=== PATIENT | male | born 1940 | race Caucasian/White ===

== ENCOUNTER 2022-03-26 13:56 | Observation (INO) | payer OTHER ==
[2022-03-26] MEDS ORDERED: NA CHLORIDE 0.9% 1,000 ML ONE ×2 (15:20→17:36)
--- NOTE | 2022-03-26 15:27 | RAD REPORT ---
EXAM DESCRIPTION: RAD - Chest Single View - 03/26/2022 3:17 pm CLINICAL HISTORY: COUGH Chest pain. COMPARISON: No comparisons FINDINGS: Portable technique limits examination quality. [id number] bilateral interstitial lung opacities likely representing viral infection. The heart is upper limit of normal in size. No displaced fractures.
[2022-03-26 15:28] LABS: Absolute Lymphocytes (CBC) 2.2 K/uL (0.7-4.9); Lymphocytes % 17.6 % (15.3-44.8); MCV 107.3 fL (80-100); MPV 8.5 fL (7.6-11.3); RBC Red Blood Cell Count 3.73 M/uL (4.33-5.43)
[2022-03-26 15:30] LABS: Protime INR 1.12
[2022-03-26 15:44] LABS: Albumin 3.3 g/dL (3.4-5.0); Bilirubin Direct 0.1 mg/dL (0-0.2); Bilirubin Total 0.5 mg/dL (0.2-1.0); Magnesium 2.3 mg/dL (1.8-2.4); Potassium 3.8 mmol/L (3.5-5.1); Protein, Total 7.8 g/dL (6.4-8.2); Troponin High Sensitivity 9.8 pg/mL (<58.9)
[2022-03-26 16:01] LABS: Blood Morphology Comment NOTED (NOT SEEN); Macrocytosis 1+; Platelet Estimate ADEQ; White Blood Cell Scan OK (OK)
--- NOTE | 2022-03-26 16:25 | RAD REPORT ---
EXAM DESCRIPTION: CT - Chest Abdomen Pelvis W Cont - 03/26/2022 4:09 pm CLINICAL HISTORY: Chest and abdomen pain. abd pain COMPARISON: No comparisons TECHNIQUE: Approximately 100 mL nonionic IV contrast was administered to the patient. All CT scans are performed using dose optimization technique as appropriate and may include automated exposure control or mA/KV adjustment according to patient size. FINDINGS: Moderate emphysematous changes are present throughout the lungs with scarring in the poste rior left upper lobe. 7 mm noncalcified nodule is seen superior segment right lower lobe (image 34/92 ).Honeycombing is present in right lung in particular compatible with fibrosis.No pleural or pericard ial effusion.No intrathoracic adenopathy. Mild diffuse fatty liver is present. The spleen is normal size. A small amount of free fluid is seen along the edge of the liver and spleen. Probable mild pericholecystic fluid. The pancreas, adrenal gl ands kidneys within normal limits. Multiple thickened loops of small intestine are present predominately the ileum including the termina l ileum. Normal appendix. No bowel obstruction, free air or abscess. Trace free fluid in the pelvis. No pathologic lymphadenopathy in the abdomen or pelvis. No worrisome osseous finding. IMPRESSION: Thickened small bowel loops are present including the terminal ileum. This is most faith tible with ileitis which may be related infection or inflammatory bowel disease. Moderate fibro-emphysematous changes throughout the lungs. 7 mm noncalcified nodule superior segment right lower lobe. Recommend follow-up CT chest in 3-6 months for monitoring. Prominent fatty liver.
[2022-03-26 16:39] LABS: SARS-CoV-2 Antigen Rapid Res Negative (Negative)
--- NOTE | 2022-03-26 16:49 | ER ---
[facility] Name: Zelalem Spencer Age: 81 yrs Sex: Male : 1940 Arrival Date: 03/26/2022 Time: 13:57 Bed 30 Private MD: Diagnosis: Other viral enteritis-ileitis;Vomiting;Diarrhea, unspecified;Abdominal pain, Generalized Presentation: 03/26 14:28 Chief complaint: Patient states: SENT FROM [place] FOR DIARRHEA, DIARRHEA x4 DAYS AFTER bp TAKING LAXATIVE FOR CONSTIPATION. Coronavirus screen: At this time, the client does not indicate any symptoms associated with coronavirus-19. Ebola Screen: No symptoms or risks identified at this time. Initial Sepsis Screen: Does the patient meet any 2 criteria? No. Patient's initial sepsis screen is negative. Does the patient have a suspected source of infection? No. Patient's initial sepsis screen is negative. Risk Assessment: Do you want to hurt yourself or someone else? Patient reports no desire to harm self or others. Onset of symptoms is unknown. 14:28 Method Of Arrival: Ambulatory bp 14:28 Acuity: SHEA 3 bp Triage Assessment: 14:30 General: Appears in no apparent distress. uncomfortable, Behavior is cooperative, bp appropriate for age, anxious. Pain: Denies pain. EENT: No deficits noted. Neuro: No deficits noted. Cardiovascular: No deficits noted. Respiratory: No deficits noted. GI: Reports diarrhea. : No signs and/or symptoms were reported regarding the genitourinary system. Derm: No deficits noted. Musculoskeletal: No deficits noted. Historical: - Allergies: 14:30 No Known Allergies; bp - Home Meds: 14:30 Lisinopril Oral [Active]; HOME OXYGEN [Active]; bp - PMHx: 14:30 Chronic obstructive lung disease; Hypertensive disorder; Hypercholesterolemia; bp - Immunization history:: Adult Immunizations up to date. - Social history:: Smoking status: Patient denies any tobacco usage or history of. - Family history:: not pertinent. Screenin:31 Abuse screen: Denies threats or abuse. Denies injuries from another. Nutritional bp screening: No deficits noted. Tuberculosis screening: No symptoms or risk factors identified. Fall Risk None identified. Assessment: 14:31 General: SEE TRIAGE NOTE. bp 15:22 Reassessment: No changes from previously documented assessment. Patient and/or family bp updated on plan of care and expected duration. Pain level reassessed. 17:30 Reassessment: No changes from previously documented assessment. Patient and/or family bp updated on plan of care and expected duration. Pain level reassessed. 18:30 Reassessment: ADMIT IN PROCESS. bp 03/27 10:32 GI: Bowel sounds present X 4 quads. Abd is soft. ap3 Vital Signs: 03/26 14:28 BP 173 / 74; Pulse 71; Resp 16; Temp 98; Pulse Ox 97% ; Weight 82.1 kg; Height 5 ft. 7 bp in. (170.18 cm); 15:22 BP 148 / 65; Pulse 69; Resp 16; Pulse Ox 96% ; bp 16:30 BP 139 / 73; Pulse 67; Resp 16; Pulse Ox 96% ; bp 18:30 BP 151 / 75; Pulse 61; Resp 16; Pulse Ox 92% ; bp 14:28 Body Mass Index 28.35 (82.10 kg, 170.18 cm) bp ED Course: 13:57 Patient arrived in ED. mr 14:23 Zelalem Maldonado, NAHOMI is Primary Nurse. bp 14:23 Anurag Horvath MD is Attending Physician. karla 14:29 Triage completed. bp 14:31 Arm band placed on. bp 14:31 Patient has correct armband on for positive identification. Bed in low position. Call bp light in reach. Side rails up X2. 15:19 XRAY Chest (1 view) In Process Unspecified. EDMS 15:20 Inserted saline lock: 20 gauge in right forearm, using aseptic technique. Blood kc6 collected. 15:21 Lipase Sent. kc6 15:21 Basic Metabolic Panel Sent. kc6 15:21 CBC with Diff Sent. kc6 15:21 LFT's Sent. kc6 15:21 Magnesium Sent. kc6 15:21 NT PRO-BNP Sent. kc6 15:21 PT-INR Sent. kc6 15:21 Troponin HS Sent. kc6 16:11 CT Chest, Abdomen, Pelvis - W/Contrast In Process Unspecified. EDMS 16:25 COVID swab sent to lab. jw7 16:47 William Durham MD is Hospitalizing Provider. karla 03/27 10:31 No provider procedures requiring assistance completed. Patient admitted, IV remains in ap3 place. Administered Medications: 03/26 15:20 Drug: NS 0.9% 1000 ml Route: IV; Rate: 1 bolus; Site: right forearm; bp 19:47 Follow up: IV Status: Completed infusion kd3 17:10 Drug: Cipro (ciprofloxacin) 400 mg Volume: 200 ml; Route: IVPB; Infused Over: 60 mins; bp Site: right forearm; 19:46 Follow up: IV Status: Completed infusion kd3 17:10 Drug: Flagyl (metroNIDAZOLE) 500 mg Volume: 100 ml; Route: IVPB; Rate: 200 ml/hr; bp Infused Over: 30 mins; Site: right forearm; 19:46 Follow up: IV Status: Completed infusion kd3 17:10 Drug: NS 0.9% 1000 ml Route: IV; Rate: 125 ml/hr; Site: right forearm; bp 17:10 Drug: Pepcid (famotidine) 20 mg Route: IVP; Site: right forearm; bp 17:10 Drug: morphine 2 mg Route: IVP; Infused Over: 4 mins; Site: right forearm; bp 17:10 Drug: Zofran (Ondansetron) 4 mg Route: IVP; Site: right forearm; bp 17:10 Drug: SOLU-Medrol (methylPrednisoLONE) 125 mg Route: IVP; Site: right forearm; bp Medication: 14:31 VIS not applicable for this client. bp Outcome: 16:48 Decision to Hospitalize by Provider. [facility] 03/27 10:31 Admitted to ER Hold. Please see [facility] for further documentation. ap3 Condition: good Instructed on the need for admit. 03/28 14:33 Patient left the ED. vg1 Signatures: Dispatcher [employer] EDAnurag Alejo MD MD cha Rivera, Mary mr Peltier, Brian, RN RN Danielle Mccurdy RN RN laz3 Asmita Centeno RN RN vg1 Beth King RN RN [id number] Carito Almeida Kaitlyn kc6
--- NOTE | 2022-03-26 16:49 | EDPHYS ---
Physician Documentation [facility] Name: Zelalem Spencer Age: 81 yrs Sex: Male : 1940 Arrival Date: 03/26/2022 Time: 13:57 Bed 30 Private MD: CAMERON Physician Anurag Horvath HPI: 03/26 16:00 This 81 yrs old Male presents to ER via Ambulatory with complaints of karla Abdominal Pain. 16:00 The patient presents with abdominal pain in the upper abdomen, in the lower abdomen, karla abdominal distention in the upper abdomen, in the lower abdomen. Onset: The symptoms/episode began/occurred 4 day(s) ago. The patient presents to the emergency department with nausea, vomiting, diarrhea, that is intermittent. Onset: The symptoms/episode began/occurred 4 day(s) ago. Possible causes: antibiotics. The symptoms are aggravated by nothing. Associated signs and symptoms: Pertinent positives: abdominal pain, constipation, diarrhea, nausea, vomiting. The symptoms do not radiate. Associated signs and symptoms: Pertinent positives: nausea and vomiting, diarrhea. Modifying factors: The symptoms are alleviated by nothing, the symptoms are aggravated by pressure, walking. Historical: - Allergies: 14:30 No Known Allergies; bp - Home Meds: 14:30 Lisinopril Oral [Active]; HOME OXYGEN [Active]; bp - PMHx: 14:30 Chronic obstructive lung disease; Hypertensive disorder; Hypercholesterolemia; bp - Immunization history:: Adult Immunizations up to date. - Social history:: Smoking status: Patient denies any tobacco usage or history of. - Family history:: not pertinent. ROS: 16:00 Constitutional: Negative for fever, chills, and weight loss, Eyes: Negative for injury, karla pain, redness, and discharge, ENT: Negative for injury, pain, and discharge, Neck: Negative for injury, pain, and swelling, Cardiovascular: Negative for chest pain, palpitations, and edema, Respiratory: Negative for shortness of breath, cough, wheezing, and pleuritic chest pain, Back: Negative for injury and pain, : Negative for injury, bleeding, discharge, and swelling, MS/Extremity: Negative for injury and deformity, Skin: Negative for injury, rash, and discoloration, Neuro: Negative for headache, weakness, numbness, tingling, and seizure, Psych: Negative for depression, anxiety, suicide ideation, homicidal ideation, and hallucinations, Allergy/Immunology: Negative for hives, rash, and allergies, Endocrine: Negative for neck swelling, polydipsia, polyuria, polyphagia, and marked weight changes, Hematologic/Lymphatic: Negative for swollen nodes, abnormal bleeding, and unusual bruising. 16:00 Abdomen/GI: Positive for abdominal pain, nausea and vomiting, diarrhea, constipation, of the suprapubic area, right upper quadrant, left upper quadrant, right lower quadrant and left lower quadrant. Exam: 16:00 Constitutional: This is a well developed, well nourished patient who is awake, alert, karla and in no acute distress. Head/Face: Normocephalic, atraumatic. Eyes: Pupils equal round and reactive to light, extra-ocular motions intact. Lids and lashes normal. Conjunctiva and sclera are non-icteric and not injected. Cornea within normal limits. Periorbital areas with no swelling, redness, or edema. ENT: Nares patent. No nasal discharge, no septal abnormalities noted. Tympanic membranes are normal and external auditory canals are clear. Oropharynx with no redness, swelling, or masses, exudates, or evidence of obstruction, uvula midline. Mucous membranes moist. Neck: Trachea midline, no thyromegaly or masses palpated, and no cervical lymphadenopathy. Supple, full range of motion without nuchal rigidity, or vertebral point tenderness. No Meningismus. Chest/axilla: Normal chest wall appearance and motion. Nontender with no deformity. No lesions are appreciated. Cardiovascular: Regular rate and rhythm with a normal S1 and S2. No gallops, murmurs, or rubs. Normal PMI, no JVD. No pulse deficits. Respiratory: Lungs have equal breath sounds bilaterally, clear to auscultation and percussion. No rales, rhonchi or wheezes noted. No increased work of breathing, no retractions or nasal flaring. Back: No spinal tenderness. No costovertebral tenderness. Full range of motion. Male : Normal genitalia with no discharge or lesions. Skin: Warm, dry with normal turgor. Normal color with no rashes, no lesions, and no evidence of cellulitis. MS/ Extremity: Pulses equal, no cyanosis. Neurovascular intact. Full, normal range of motion. Neuro: Awake and alert, GCS 15, oriented to person, place, time, and situation. Cranial nerves II-XII grossly intact. Motor strength 5/5 in all extremities. Sensory grossly intact. Cerebellar exam normal. Normal gait. Psych: Awake, alert, with orientation to person, place and time. Behavior, mood, and affect are within normal limits. 16:00 ECG was reviewed by the Attending Physician. 16:00 Abdomen/GI: Inspection: distension, that is mild, Bowel sounds: hyperactive, Palpation: mild abdominal tenderness, in all quadrants, Liver: no appreciated palpable abnormalities, Hernia: not appreciated. Vital Signs: 14:28 BP 173 / 74; Pulse 71; Resp 16; Temp 98; Pulse Ox 97% ; Weight 82.1 kg; Height 5 ft. 7 bp in. (170.18 cm); 15:22 BP 148 / 65; Pulse 69; Resp 16; Pulse Ox 96% ; bp 16:30 BP 139 / 73; Pulse 67; Resp 16; Pulse Ox 96% ; bp 18:30 BP 151 / 75; Pulse 61; Resp 16; Pulse Ox 92% ; bp 14:28 Body Mass Index 28.35 (82.10 kg, 170.18 cm) bp MDM: 14:23 Patient medically screened. karla 16:06 Differential diagnosis: Nonspecific abd pain, gastritis, cholecystitis, pancreatitis, karla diverticulitis, viral gastroenteritis, gastroenteritis, Cholelithiasis, diverticulitis, gastritis, Mesenteric ischemia or infarction, non-specific abd pain, pancreatitis, Peptic Ulcer Disease, Perf. Duodenal Ulcer, Pyelonephritis, Ureterolithiasis. Data reviewed: vital signs, nurses notes, lab test result(s), EKG, radiologic studies, CT scan, plain films. Data interpreted: Pulse oximetry: on room air is 96 %. Test interpretation: by ED physician or midlevel provider: ECG, plain radiologic studies. Counseling: I had a detailed discussion with the patient and/or guardian regarding: the historical points, exam findings, and any diagnostic results supporting the discharge/admit diagnosis, lab results, radiology results. 03/26 14:55 Order name: Basic Metabolic Panel; Complete Time: 15:46 [facility] 03/26 14:55 Order name: CBC with Diff; Complete Time: 16:43 [facility] 03/26 14:55 Order name: LFT's; Complete Time: 15:46 [facility] 03/26 14:55 Order name: Magnesium; Complete Time: 15:46 [facility] 03/26 14:55 Order name: NT PRO-BNP; Complete Time: 15:46 [facility] 03/26 14:55 Order name: PT-INR; Complete Time: 15:46 [facility] 03/26 14:55 Order name: Troponin HS; Complete Time: 15:46 [facility] 03/26 14:55 Order name: Lipase; Complete Time: 15:46 [facility] 03/26 15:47 Order name: SARS RAPID; Complete Time: 16:43 [facility] 03/26 16:01 Order name: CBC Smear Scan; Complete Time: 16:43 [facility] 03/26 16:47 Order name: Fecal Leukocyte Stain [facility] 03/26 16:47 Order name: Stool Culture [facility] 03/26 20:12 Order name: Urine Dipstick-Ancillary; Complete Time: 21:37 [facility] 03/26 20:27 Order name: CBC with Automated Diff [facility] 03/26 14:55 Order name: XRAY Chest (1 view); Complete Time: 15:46 [facility] 03/26 14:55 Order name: EKG; Complete Time: 15:00 [facility] 03/26 15:57 Order name: CT Chest, Abdomen, Pelvis - W/Contrast; Complete Time: 16:43 [facility] 03/26 20:27 Order name: CBC with Automated Diff; Complete Time: 21:37 [facility] 03/26 20:27 Order name: Comprehensive Metabolic Panel [facility] 03/26 20:27 Order name: Comprehensive Metabolic Panel; Complete Time: 21:37 [facility] 03/27 15:22 Order name: RAD; Complete Time: 21:37 [facility] 03/26 14:55 Order name: Cardiac monitoring; Complete Time: 15:07 [facility] 03/26 14:55 Order name: EKG - Nurse/Tech; Complete Time: 15:33 [facility] 03/26 14:55 Order name: IV Saline Lock; Complete Time: 15:21 [facility] 03/26 14:55 Order name: Labs collected and sent; Complete Time: 15:21 [facility] 03/26 14:55 Order name: O2 Per Protocol; Complete Time: 15:07 [facility] 03/26 14:55 Order name: O2 Sat Monitoring; Complete Time: 15:07 [facility] 03/26 14:55 Order name: Urine Dipstick-Ancillary (obtain specimen); Complete Time: 20:43 [facility] 03/26 20:27 Order name: Clear Liquid EDMS EC:00 Rate is 65 beats/min. Rhythm is regular. QRS [place] is Normal. ID interval is normal. QRS karla interval is normal. QT interval is normal. No Q waves. T waves are Normal. No ST changes noted. Clinical impression: NSR w/ Non-specific ST/T Changes and No evidence of ischemia. Interpreted by me. Reviewed by me. Administered Medications: 15:20 Drug: NS 0.9% 1000 ml Route: IV; Rate: 1 bolus; Site: right forearm; bp 19:47 Follow up: IV Status: Completed infusion kd3 17:10 Drug: Cipro (ciprofloxacin) 400 mg Volume: 200 ml; Route: IVPB; Infused Over: 60 mins; bp Site: right forearm; 19:46 Follow up: IV Status: Completed infusion kd3 17:10 Drug: Flagyl (metroNIDAZOLE) 500 mg Volume: 100 ml; Route: IVPB; Rate: 200 ml/hr; bp Infused Over: 30 mins; Site: right forearm; 19:46 Follow up: IV Status: Completed infusion kd3 17:10 Drug: NS 0.9% 1000 ml Route: IV; Rate: 125 ml/hr; Site: right forearm; bp 17:10 Drug: Pepcid (famotidine) 20 mg Route: IVP; Site: right forearm; bp 17:10 Drug: morphine 2 mg Route: IVP; Infused Over: 4 mins; Site: right forearm; bp 17:10 Drug: Zofran (Ondansetron) 4 mg Route: IVP; Site: right forearm; bp 17:10 Drug: SOLU-Medrol (methylPrednisoLONE) 125 mg Route: IVP; Site: right forearm; bp Disposition Summary: 03/26/22 16:48 Hospitalization Ordered Hospitalization Status: Inpatient Admission karla Provider: William Durham cha Condition: Fair karla Problem: new karla Symptoms: have improved karla Bed/Room Type: Standard karla [facility] 20:57[facility] cg Room Assignment: ERHOLD-(03/26/22 20:57) cg Diagnosis - Other viral enteritis - ileitis karla - Vomiting karla - Diarrhea, unspecified karla - Abdominal pain, Generalized karla Forms: - Medication Reconciliation Form karla - SBAR form karla Signatures: Dispatcher [employer] [facility] Anurag Horvath MD MD cha Garcia, Cindy RN RN cg Zelalem Maldonado, NAHOMI RN Vonnie Scott PA PA sb3 Beth King RN kd3 Corrections: (The following items were deleted from the chart) 16:09 15:00 Abdomen Pelvis Wo Con+CT.RAD.BRZ ordered. EDMS EDMS 20:57 16:48 Telemetry/MedSurg (Inpatient) [facility] 20:57 16:48 [facility]
[2022-03-26] MEDS ORDERED: MORPHINE 2 MG/ML SYR ONE (17:35)
[2022-03-26] MEDS ORDERED: METHYLPREDNISOLONE 125 MG INJ ONE (17:35)
[2022-03-26] MEDS ORDERED: ONDANSETRON 4 MG/2 ML VIAL ONE (17:35)
[2022-03-26] MEDS ORDERED: FAMOTIDINE 20 MG/2 ML VIAL IV ONE (17:35)
[2022-03-26] MEDS ORDERED: METRONIDAZOLE 500mg IVPB 500 MG/100 ML BAG IV ONE (17:36)
[2022-03-26] MEDS ORDERED: CIPROFLOXACIN 400mg IV 400 MG/200 ML BAG IV ONE (17:36)
[2022-03-26 20:11] LABS: Urine Blood Negative (Negative); Urine Glucose Negative (Negative); Urine Protein Negative (Negative); Urine Specific Gravity <=1.005 (1.005-1.030); Urine pH 5.5 (5.0-7.0)
[2022-03-26] MEDS ORDERED: ACETAMINOPHEN 500 MG TAB PO PRN (20:23)
[2022-03-26] MEDS ORDERED: ONDANSETRON 4 MG/2 ML VIAL IV PRN (20:23)
[2022-03-26] MEDS ORDERED: MORPHINE 2 MG/ML SYR IV PRN (20:23)
--- NOTE | 2022-03-26 20:33 | P.HP ---
Certification for Inpatient Patient admitted to: Observation With expected LOS: <2 Midnights Patient will require the following post-hospital care: None Practitioner: I am a practitioner with admitting privileges, knowledge of patient current condition, hospital course, and medical plan of care. Services: Services provided to patient in accordance with Admission requirements found in Title 42 Section 412.3 of the Code of Federal Regulations Patient History Date of Service: 03/26/22 Reason for admission: Ileitis History of Present Illness: Patient is a 81-year-old gentleman came to the hospital with abdominal pain. Patient has some nausea and vomiting and diarrhea. His abdomen was mildly distended. He came to the emergency room for further evaluation. In emergency room patient had CT imaging which revealed ileitis. 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 We started him on antibiotics and IV steroids. Patient will be admitted for observation. Allergies No Known Allergies Allergy (Unverified 03/26/22 21:32) - Past Medical/Surgical History Past Medical History: Patient denies medical history Past Surgical History: Patient denies surgical history - Family History Father Family History: Reviewed- Non-Contributory - Social History Smoking Status: Former smoker Alcohol use: No CD- Drugs: No Review of Systems 10-point ROS is otherwise unremarkable Physical Examination - Vital Signs Temperature: 99 F Blood Pressure: 140/80 Pulse: 88 Respirations: 18 Pulse Ox (%): 96 - Physical Exam General: Alert, In no apparent distress, Oriented x3 HEENT: Atraumatic, PERRLA, Mucous membr. moist/pink, EOMI, Sclerae nonicteric Neck: Supple, 2+ carotid pulse no bruit, No LAD, Without JVD or thyroid abnormality Respiratory: Clear to auscultation bilaterally, Normal air movement Cardiovascular: Regular rate/rhythm, Normal S1 S2 Gastrointestinal: Hypoactive, No rebound, No guarding, Distended, Tenderness Musculoskeletal: No clubbing, No swelling, No tenderness Integumentary: No rashes Neurological: Normal speech, Normal strength at 5/5 x4 extr, Sensation intact, Cranial nerves 3-12 intact Lymphatics: No axilla or inguinal lymphadenopathy - Studies Laboratory Data (last 24 hrs) 03/26/22 15:18: PT 12.3, INR 1.12 03/26/22 15:18: WBC 12.5 H, Hgb 13.6, Hct 40.0, Plt Count 311 08/09/22 15:18: Sodium 134 L, Potassium 3.8, BUN 18, Creatinine 1.05, Glucose 86, Magnesium 2.3, Total Bilirubin 0.5, AST 28, ALT 31, Alkaline Phosphatase 60, Lipase 162 Assessment & Plan - Problems (Diagnosis) (1) Ileitis Current Visit: Yes Status: Acute - Plan -IV antibiotics -IV fluids -Outpatient GI consultation -CBC, CMP, lipase, stool cultures -Clear liquid diet and advance as tolerated -Repeat abdominal film -IV steroids -Antiemetics Discharge Plan: Home Plan to discharge in: Greater than 2 days - Advance Directives Does patient have a Living Will: No Does patient have a Durable POA for Healthcare: No - Code Status/Comfort Care Code Status Assessed: Yes Code Status: Full Code Critical Care: No Time Spent Managing PTS Care (In Minutes): 45
[2022-03-26] MEDS: NA CHLORIDE 0.9% 1,000 ML IV SCH (21:00)
[2022-03-26] MEDS ORDERED: Levofloxacin500mg IV 500 MG/100 ML BAG IV SCH (21:00)
[2022-03-27] MEDS: METHYLPREDNISOLONE 40 MG INJ IV SCH ×3 (01:00→17:00)
[2022-03-27] MEDS: METRONIDAZOLE 500mg IVPB 500 MG/100 ML BAG IV SCH ×3 (01:00→17:00)
[2022-03-27] MEDS ORDERED: METHYLPREDNISOLONE 40 MG INJ ONE ×3 (01:15→17:27)
[2022-03-27] MEDS ORDERED: METRONIDAZOLE 500mg IVPB 500 MG/100 ML BAG IV ONE ×2 (01:15→07:54)
[2022-03-27 02:51] LABS: Absolute Lymphocytes (CBC) 0.8 K/uL (0.7-4.9); Hematocrit 37.7 % (39.6-49.0); Lymphocytes % 10.3 % (15.3-44.8); MPV 8.7 fL (7.6-11.3); RBC Red Blood Cell Count 3.53 M/uL (4.33-5.43)
[2022-03-27 02:56] LABS: MCV 106.9 fL (80-100)
[2022-03-27 03:09] LABS: Bilirubin Total 0.4 mg/dL (0.2-1.0); Potassium 4.1 mmol/L (3.5-5.1); Protein, Total 7.4 g/dL (6.4-8.2)
[2022-03-27] MEDS: PANTOPRAZOLE 40MG TABLET PO SCH (06:30)
[2022-03-27] MEDS ORDERED: PANTOPRAZOLE 40MG TABLET PO ONE (06:52)
[2022-03-27] MEDS: NA CHLORIDE 0.9% 1,000 ML IV SCH ×2 (07:00→17:00)
--- NOTE | 2022-03-27 07:54 | EKG ---
Test Date: 2022-03-26 Test Time: 15:33:01 Flake Or Shred Roll Operator: BARBY MEASUREMENT RESULTS: Intervals: Rate: 65 LA: 178 QRSD: 86 QT: 440 QTc: 457 [place]: P: 77 LA: 178 QRS: 72 T: 120 INTERPRETIVE STATEMENTS: Sinus rhythm with marked sinus arrhythmia Nonspecific ST and T wave abnormality Abnormal ECG No previous ECG available for comparison Electronically Signed On 03-27-22 07:52:35 CDT by Sebastian Mai
[2022-03-27] MEDS ORDERED: NA CHLORIDE 0.9% 1,000 ML ONE ×2 (08:31→17:27)
--- NOTE | 2022-03-27 14:03 | P.DS ---
Discharge Date: 03/27/22 Disposition: ROUTINE DISCHARGE Discharge Condition: GOOD Reason for Admission: Ileitis - Problems (1) Ileitis Current Visit: Yes Status: Acute Brief History of Present Illness: Patient is a 81-year-old gentleman came to the hospital with abdominal pain. Patient has some nausea and vomiting and diarrhea. His abdomen was mildly distended. He came to the emergency room for further evaluation. In emergency room patient had CT imaging which revealed ileitis. 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 We started him on antibiotics and IV steroids. Patient will be admitted for observation. Hospital Course: Patient has done well during hospital stay. Patient clinical symptoms are improving. Patient tolerating diet. At this time, patient is stable for discharge home. Patient will need outpatient follow-up with gastroenterology for colonoscopy for further evaluation. Vital Signs/Physical Exam: Temp Pulse Resp BP Pulse Ox 99 F 88 18 140/80 96 03/27/22 13:58 03/27/22 13:58 03/27/22 13:58 03/27/22 13:58 03/27/22 13:58 General: Alert, In no apparent distress, Oriented x3 Laboratory Data at Discharge: WBC 7.8 K/uL (4.3-10.9) D 03/27/22 02:25 Hgb 13.0 g/dL (13.6-17.9) L 03/27/22 02:25 Hct 37.7 % (39.6-49.0) L 03/27/22 02:25 Plt Count 281 K/uL (152-406) 03/27/22 02:25 PT 12.3 SECONDS (9.5-12.5) 03/26/22 15:18 INR 1.12 03/26/22 15:18 Sodium 137 mmol/L (136-145) 03/27/22 02:25 Potassium 4.1 mmol/L (3.5-5.1) 03/27/22 02:25 BUN 14 mg/dL (7-18) 03/27/22 02:25 Creatinine 0.79 mg/dL (0.55-1.3) 03/27/22 02:25 Glucose 131 mg/dL (74-106) H 03/27/22 02:25 Magnesium 2.3 mg/dL (1.8-2.4) 03/26/22 15:18 Total Bilirubin 0.4 mg/dL (0.2-1.0) 03/27/22 02:25 AST 25 U/L (15-37) 03/27/22 02:25 ALT 28 U/L (12-78) 03/27/22 02:25 Alkaline Phosphatase 55 U/L (45-117) 03/27/22 02:25 Lipase 162 U/L (73-393) 03/26/22 15:18 Home Medications: Levofloxacin [Levaquin] 500 mg PO DAILY #7 03/27/22 levoFLOXacin [Levaquin] 500 mg PO DAILY #7 tab 03/27/22 metroNIDAZOLE [Flagyl] 500 mg PO Q8H #20 03/27/22 metroNIDAZOLE [Flagyl] 500 mg PO Q8H #20 03/27/22 predniSONE [Prednisone*] 20 mg PO BID #11 tab 03/27/22 New Medications: metroNIDAZOLE [Flagyl] 500 mg PO Q8H #20 metroNIDAZOLE [Flagyl] 500 mg PO Q8H #20 Levofloxacin [Levaquin] 500 mg PO DAILY #7 levoFLOXacin [Levaquin] 500 mg PO DAILY #7 tab predniSONE [Prednisone*] 20 mg PO BID #11 tab Physician Discharge Instructions: -DC IV and DC home -Follow-up with PCP in 1 to 2 weeks -Follow-up with gastroenterology for colonoscopy in 1 to 2 weeks -Please call Dr. Durham at [phone] if any questions regarding hospital stay -Please call nursing station at [phone] if any nursing or medication questions -Return to the emergency room if symptoms worsen Diet: SOFT Activity: Fall precautions Followup: Unknown,U [Primary Care Provider] - Time spent managing pt's care (in minutes): 35
[2022-03-27] MEDS ORDERED: Levofloxacin 750mg IV 750 MG/150 ML BAG IV ONE (14:58)
[2022-03-27] MEDS: Levofloxacin 750mg IV 750 MG/150 ML BAG IV SCH (15:00)
[2022-03-27] MEDS ORDERED: MINERAL OIL 30 ML UCUP PO ONE (15:00)
[2022-03-27] MEDS ORDERED: MORPHINE 2 MG/ML SYR ONE (15:11)
[2022-03-27] MEDS ORDERED: ONDANSETRON 4 MG/2 ML VIAL ONE (15:11)
--- NOTE | 2022-03-27 15:22 | RAD REPORT ---
EXAM DESCRIPTION: RAD - Abdomen W Erect - 03/27/2022 2:56 pm CLINICAL HISTORY: ILEITIS/ABD DISTENTION COMPARISON: Chest Abdomen Pelvis W Cont dated 03/26/2022 TECHNIQUE: Supine and upright views of the abdomen were obtained. FINDINGS: Numerous dilated small bowel loops are present. No differential air-fluid levels confirmed . The dilated small bowel pattern does appear more prominent than the March [address] CT study. No free air or pneumatosis seen. Colon is decompressed. IMPRESSION: Multiple dilated small bowel loops are present progressive from the March 26 CT study. No free air or pneumatosis.
[2022-03-27] MEDS ORDERED: ENOXAPARIN 40 MG/0.4 ML SQ SCH (17:00)
[2022-03-27] MEDS ORDERED: ENOXAPARIN 40 MG/0.4 ML SQ ONE (17:27)
--- NOTE | 2022-03-28 00:28 | P.PN ---
Subjective Date of Service: 03/27/22 Patient discharge was held as his abdomen was more distended. He has stopped having diarrhea. He was able to tolerate his meals but he was noticing that his abdomen was more distended. X-ray does show dilatation of the small bowels. No obvious obstruction at this time. He is passing gas from his bottom. We gave him some mineral oil & we will see if he has some relief. Review of Systems 10-point ROS is otherwise unremarkable Physical Examination - Vital Signs Temperature: 99 F Blood Pressure: 133/83 Pulse: 89 Respirations: 18 Pulse Ox (%): 94 - Physical Exam General: Alert, In no apparent distress HEENT: Atraumatic, PERRLA, EOMI Neck: Supple, JVD not distended Respiratory: Clear to auscultation bilaterally, Normal air movement Cardiovascular: Regular rate/rhythm, Normal S1 S2 Gastrointestinal: Hypoactive, No rebound, No guarding, Distended Musculoskeletal: No tenderness Integumentary: No rashes Neurological: Normal speech, Normal tone, Normal affect Lymphatics: No axilla or inguinal lymphadenopathy - Studies Medications List Reviewed: Yes Assessment & Plan - Problems (Diagnosis) (1) Ileitis Current Visit: Yes Status: Acute - Plan Continue with plan of care as mentioned below: -will get mineral well -IV antibiotics -IV fluids -Outpatient GI consultation -CBC, CMP, lipase, stool cultures -Clear liquid diet and advance as tolerated -Repeat abdominal film -IV steroids -Antiemetics Discharge Plan: Home Plan to discharge in: Greater than 2 days - Advance Directives Does patient have a Living Will: No Does patient have a Durable POA for Healthcare: No - Code Status/Comfort Care Code Status: Full Code Critical Care: No Time Spent Managing PTS Care (In Minutes): 35
[2022-03-28 00:43] VITALS: BMI 28.1
[2022-03-28] MEDS: METHYLPREDNISOLONE 40 MG INJ IV SCH ×2 (02:51→09:00)
[2022-03-28] MEDS: METRONIDAZOLE 500mg IVPB 500 MG/100 ML BAG IV SCH ×2 (02:51→10:40)
[2022-03-28] MEDS ORDERED: METHYLPREDNISOLONE 40 MG INJ ONE ×2 (02:53→10:44)
[2022-03-28] MEDS ORDERED: METRONIDAZOLE 500mg IVPB 500 MG/100 ML BAG IV ONE ×2 (02:53→10:44)
[2022-03-28] MEDS: PANTOPRAZOLE 40MG TABLET PO SCH (10:40)
[2022-03-28] MEDS ORDERED: PANTOPRAZOLE 40MG TABLET PO ONE (10:43)
[2022-03-28] MEDS ORDERED: Levofloxacin 750mg IV 750 MG/150 ML BAG IV ONE (10:44)
[2022-03-28] MEDS: Levofloxacin 750mg IV 750 MG/150 ML BAG IV SCH (11:10)
[2022-03-28] MEDS ORDERED: MINERAL OIL 30 ML UCUP PO ONE (13:00)
[2022-03-28] MEDS ORDERED: MINERAL OIL 30 ML UCUP ONE (13:09)
[2022-03-28 15:04] VITALS: TEMP 98
[2022-03-28 15:12] VITALS: BP 151/75; O2SAT 92
== END 2022-03-28 14:35 | disposition home or self-care (01) ==
LOC: ER 13:56 → ERHOLD 20:24
PROVIDERS: ADMIT Hospitalist; ATTEND Hospitalist
DX: K52.9 Noninfective gastroenteritis and colitis, unspecified (principal); J44.9 Chronic obstructive pulmonary disease, unspecified; I10 Essential (primary) hypertension; E78.00 Pure hypercholesterolemia, unspecified; Z99.81 Dependence on supplemental oxygen; Z79.52 Long term (current) use of systemic steroids; Z79.899 Other long term (current) drug therapy; Z87.891 Personal history of nicotine dependence; Z20.822 Contact with and (suspected) exposure to COVID-19
CPT/HCPCS: 36415; 71045; 71260; 74019; 74177; 80048; 80053; 80076; 81003; 83690; 83735; 83880; 84484; 85025; 85610; 87045; 87046; 87811; 89055; 93005; J0744; J1650; J2270; J2405; J2920; J2930; J7030; Q9967